=== PATIENT | female | born 2005 | race Caucasian/White ===

== ENCOUNTER 2024-03-22 13:51 | Emergency (ER) | payer OTHER, SELFPAY ==
[2024-03-22 14:02] VITALS: BP 108/58; PULSE 76; RESP 18; TEMP 36.3; O2SAT 98
[2024-03-22 14:03] VITALS: BP 108/58; PULSE 76; RESP 18; TEMP 36.3; O2SAT 98
[2024-03-22] MEDS: LIDO 1%/EPINEPHRINE 1:100,000 20 ML VIAL 4 ML INFILTRATE (14:27)
--- NOTE | 2024-03-22 14:51 | ED.SKABFB ---
HPI - Skin/Abscess/Foreign Bdy General Chief complaint: Skin/Abscess/Foreign Body Stated complaint: lumps on lower bottom region Time Seen by Provider: 03/22/24 14:07 Source: patient and RN notes reviewed Mode of arrival: ambulatory Limitations: no limitations History of Present Illness HPI narrative: Patient presents today complaining of lumps to the gluteal cleft x6days. Denies history of staph, MRSA, boils, abscesses. She has tried some [id number] pain medicine without relief. Related Data Allergies Allergy/AdvReac Type Severity Reaction Status Date / Time No Known Allergies Allergy Verified 03/22/24 14:03 Review of Systems Review of Systems: CONSTITUTIONAL: Denies body aches, fever, chills, or sweats. EYES: Denies visual changes, redness, or discharge. ENT: Denies rhinorrhea, congestion, sore throat, or otalgia. CARDIOVASCULAR: Denies chest pain, palpitations, or edema. RESPIRATORY: Denies cough or dyspnea. GASTROINTESTINAL: Denies abdominal pain, nausea, vomiting, or diarrhea. GENITOURINARY: Denies dysuria or hematuria. SKIN: lump to gluteal cleft MUSCULOSKELETAL: Denies back pain, joint pain, or myalgia. NEUROLOGIC: Denies headache, numbness, tingling, or weakness. PSYCH: Denies depression or anxiety. [facility] Past Medical History Medical History No active medical problems Surgical History Surgical History No pertinent past surgical history Family History Family History Father Hypertension Sibling Childhood asthma Grandparent Asthma Lymphoma Diabetes mellitus Hypertension Grandparent Hypertension Heart disease Social History Social History Smoking status: Never smoker Alcohol intake: never Alcohol use details: has tried it 1 time Substance use: never Last use: has tried marijuana 1 time Lack of Transportation: No Lack of Food: Never True Current Housing: I Have Housing Concerned About Future Housing: No Difficulty Paying Gas/Electric Bills: No Difficulty Paying for Meds: No Currently Unemployed: No Education: High School Diploma/GED Living arrangements: with family Occupation/Education: student Additional occupation/education comments: [employer] Gender identity (if verbalized by the patient): Female Comments At time of signature, I have reviewed and agree with nursing past medical, surgical, social and family history unless otherwise noted. Please see nursing chart for further information. There is no relevant family history pertinent to the presenting complaint Exam Narrative: GENERAL: Well-appearing, well-nourished, and in no acute distress. HEAD: Normocephalic, atraumatic. EYES: EOMI. No redness or drainage. Conjunctivae normal. ENT: Mucous membranes pink and moist. NECK: Normal AROM. CHEST: No respiratory distress. EXTREMITIES: Normal range of motion. No edema. SKIN: Warm, dry, no rash. Capillary refill normal. Normal skin turgor. 2.5cmx1.5cm area of erythema, tenderness and induration to the left gluteal cleft. NEURO: No focal deficits. Alert and oriented x3. Gait steady. PSYCH: Normal affect. No signs of depression or anxiety. Course Course Level of Care: Express Care Visit Vital Signs Vital signs: Vital Signs Temperature 97.4 F L 03/22/24 14:02 Pulse Rate 76 03/22/24 14:02 Respiratory Rate 18 03/22/24 14:02 Blood Pressure 108/58 L 03/22/24 14:02 Pulse Oximetry 98 03/22/24 14:02 Oxygen Delivery Room Air 03/22/24 14:02 Temperature 97.4 F L 03/22/24 14:03 Pulse Rate 76 03/22/24 14:03 Respiratory Rate 18 03/22/24 14:03 Blood Pressure 108/58 L 03/22/24 14:03 Pulse Oximetry 98 03/22/24 14:03 Oxygen Delivery Room Air 03/22/24 1
== END 2024-03-22 14:49 | disposition home or self-care (01) ==
PROVIDERS: Emergency Provider Nurse Practitioner
DX: L05.01 Pilonidal cyst with abscess (principal)
CPT/HCPCS: 10080; 99213; G0463

== ENCOUNTER 2024-03-22 16:40 | Inpatient (IN) | payer OTHER, SELFPAY ==
--- NOTE | ~2024-03-22 | XR_ITS ---
XR chest 2V Ordering provider: Vania Marie PA-C History: 18 years Female with . sepsis w/u . Comparison: None. FINDINGS: MEDIASTINUM: The cardiac silhouette is not enlarged. LUNGS: No infiltrates, effusions or pneumothorax. OTHER: No free air under the diaphragm. IMPRESSION: No acute cardiopulmonary pathology. Reviewed, dictated and finalized at location A.
--- NOTE | ~2024-03-22 | CT_ITS ---
CT pelvis w con Ordering provider: Vania Marie PA-C History: . pilonidal . Comparison: None. Technique: CT pelvis without oral and IV contrast. . Automated exposure control and iterative recons truction technique were employed. The dose-length product was 632.32 mGy-cm. 100 mL Omnipaque 350 was given IV. Findings: BONES: No pelvic fracture or hip dislocation. Normal visualized lower lumbar spine. The hip and sacro iliac joint spaces are well maintained. SUPERFICIAL SOFT TISSUES: Soft tissue density is seen opposite the sacrococcygeal area which may be i nflammatory and measures 2.4 x 2.5 cm.. Clinical evaluation advised. PELVIC ORGANS: The bladder is normal. VISUALIZED BOWEL AND MESENTERY: Normal. No free air or free fluid. No lymphadenopathy. RETROPERITONEUM: Normal aorta. IMPRESSION: Soft tissue density opposite the sacrococcygeal area which may be inflammatory. Clinical evaluation a dvised. Reviewed, dictated and finalized at location A. IMPRESSION: Soft tissue density opposite the sacrococcygeal area which may be inflammatory. Clinical evaluation advised.
[2024-03-22 16:45] VITALS: BP 138/91; PULSE 108; RESP 20; TEMP 37; O2SAT 100
[2024-03-22 17:18] VITALS: BP 114/74; PULSE 116; RESP 18; TEMP 37.5; O2SAT 100
[2024-03-22] MEDS: IBUPROFEN 600 MG TABLET PO (17:35)
--- NOTE | 2024-03-22 17:51 | ED.SKABFB ---
HPI - Skin/Abscess/Foreign Bdy General Chief complaint: Skin/Abscess/Foreign Body <LACY Viramontes Last Filed: 03/22/24 23:00> Stated complaint: Had cyst drained today now feels lightheaded <LACY Viramontes Last Filed: 03/22/24 23:00> Time Seen by Provider: 03/22/24 16:59 <LACY Viramontes Last Filed: 03/22/24 23:00> Source: patient <LACY Viramontes Last Filed: 03/22/24 23:00> Mode of arrival: ambulatory <LACY Viramontes Filed: 03/22/24 23:00> Limitations: no limitations <LACY Viramontes Last Filed: 03/22/24 23:00> History of Present Illness HPI narrative: Patient is a 18 y/o female who presents to the ED with c/o lightheadedness/shakiness. Patient reports she was seen at an urgent care today for a potential pilonidal cyst. I and D was attempted, however no purulent drainage was expressed. Patient was started on Bactrim, but has not picked this up from the pharmacy yet. She reports around 4:00 p[address]. while she was attempting to drive to work, she began feeling very lightheaded, shaky, anxious, nauseous. She then prompted here for further evaluation. She reports feeling hot/diaphoretic, but denies known fever. Complains of pain to her tailbone and head. <LACY Viramontes Last Filed: 03/22/24 23:00> Related Data Allergies/Adverse reactions: Allergies Allergy/AdvReac Type Severity Reaction Status Date / Time No Known Allergies Allergy Verified 03/22/24 17:37 <LACY Viramontes Last Filed: 03/22/24 23:00> Review of Systems Review of Systems: All systems reviewed & are unremarkable except as noted in HPI. <LACY Viramontes Last Filed: 03/22/24 23:00> All systems reviewed & are unremarkable except as noted in HPI and below <Vania Marie PA-C - Last Filed: 03/22/24 23:00> [facility] Past Medical History Medical History: Medical History No active medical problems <Vania Marie PA-C - Last Filed: 03/22/24 23:00> Surgical History Surgical History: Surgical History No pertinent past surgical history <Vania Marie PA-C - Last Filed: 03/22/24 23:00> Family History Family History: Family History Father Hypertension Sibling Childhood asthma Grandparent Asthma Lymphoma Diabetes mellitus Hypertension Grandparent Hypertension Heart disease <Vania Marie PA-C - Last Filed: 03/22/24 23:00> Social History Social History: Social History Smoking status: Never smoker Alcohol intake: never Alcohol use details: has tried it 1 time Substance use: never Last use: has tried marijuana 1 time Do You Feel Safe in your Home?: Yes Lack of Transportation: No Lack of Food: Never True Current Housing: I Have Housing Concerned About Future Housing: No Difficulty Paying Gas/Electric Bills: No Difficulty Paying for Meds: No Currently Unemployed: No Education: High School Diploma/GED Difficulty w/ Childcare or Family Care: No Living arrangements: with family Occupation/Education: student Additional occupation/education comments: [employer] Gender identity (if verbalized by the patient): Female Spiritual care concerns: No <Vania Marie PA-C - Last Filed: 03/22/24 23:00> Exam Narrative: GENERAL: Mildly anxious appearing, morbidly obese with BMI of 40.5, non-toxic, in no acute distress. HEAD: Normocephalic, atraumatic. RESPIRATORY: Airway patent, respirations nonlabored. Clear to auscultation bilaterally, no rales, rhonchi, wheezing. CARDIOVASCULAR: Tachycardic with regular rhythm without murmurs, rubs, or gallops. AB
[2024-03-22] MEDS: ONDANSETRON INJ 4 MG/2 ML VIAL IV PUSH (17:53)
[2024-03-22] MEDS: SODIUM CHLORIDE 0.9% IV 1,000 ML 999 ML IV CONT ×2 (17:54→19:31)
[2024-03-22 18:00] LABS: Hematocrit 39.3 % (37.0-47.0); Hemoglobin 13.2 g/dL (12.0-15.0); Mean Corpuscular HGB Conc 33.6 g/dl (32-36); Mean Corpuscular Hemoglobin 28.6 pg (26-34); Mean Corpuscular Volume 85.1 fl (80-100); Mean Platelet Volume 9.9 fl (7.4-10.4); Platelet Count Result 246 k/mm3 (150-375); Red Blood Count 4.62 M/mm3 (4.2-5.4); Red Cell Distribution Width 12.9 % (11.5-14.5)
[2024-03-22 18:13] LABS: Anion Gap 13 mmol/L (4-12); Blood Urea Nitrogen 6 mg/dL (8-21); Calcium 9.4 mg/dL (8.9-10.7); Carbon Dioxide 25 mmol/L (22-30); Chloride 101 mmol/L (98-107); Estimated Glomerular Filt Rate > 60; Glucose 86 mg/dL (65-110); Magnesium 1.7 mg/dL (1.6-2.3); Potassium 3.5 mmol/L (3.4-5.0); Sodium 139 mmol/L (134-143)
[2024-03-22 18:18] LABS: White Blood Count 1.6 K/mm3 (4.5-10.0)
[2024-03-22 18:20] LABS: Band Neutrophils Percent 2 % (0-6); Neutrophils Absolute Manual 1.28 K/mm3 (1.7-7.2); Neutrophils Percent Manual 78 % (46-73); Total Cells Counted 100
[2024-03-22 18:21] LABS: Eosinophils Absolute Manual 0.01 K/mm3 (0.02-0.50); Eosinophils Percent Manual 1 % (0-4); Lymphocytes Absolute Manual 0.28 K/mm3 (1.1-4.5); Lymphocytes Percent Manual 18 % (18-44); Monocytes Absolute Manual 0.01 K/mm3 (0.1-0.90); Monocytes Percent Manual 1 % (3-9); Platelet Estimate Adequate (Adequate); Schistocytes None Seen
[2024-03-22 19:31] LABS: Lactic Acid Reflex 1.9 mmol/L (0.7-2.0)
[2024-03-22] MEDS: VANCOMYCIN 1,250 MG/NS 250 ML 1,250 MG/250 ML BAG 166.67 MG IVPB ×2 (20:24→22:05)
[2024-03-22 21:18] LABS: Add Urine Microscopic? NO; Appearance Urine Clear (Clear); Bilirubin Urine Negative (Negative); Blood Urine Negative (Negative); Color Urine Yellow (Yellow); Glucose Urine UA Negative (Negative); Ketones Urine Negative (Negative); Leukocyte Esterase Ur Negative LEU/UL (Negative); Nitrate Urine Negative (Negative); Protein Urine Negative (Negative); Specific Grav Ur 1.027 (1.001-1.035); Urobilinogen Urine 0.2 mg/dL (<2.0); pH Urine 5.5 (5.0-9.0)
[2024-03-22] MEDS: SODIUM CHLORIDE 0.9% IV 1,000 ML 125 ML IV CONT (22:09)
[2024-03-22 22:16] VITALS: BP 103/60; PULSE 124; RESP 16; TEMP 36.9; O2SAT 99
--- NOTE | 2024-03-22 23:39 | PM.IMHP ---
H&P: HPI History of Present Illness Date/Time: 03/22/24 23:39 Chief Complaint: sacral pain, lightheadedness, shakiness. Narrative: Ms. Maurer is a pleasant 18-year-old female with a history of obesity, she is accompanied by her father. She lives with her boyfriend. She complains of about 5 days of paiin the soft tissue And her buttock. She would 10 urgent care today on the day of admission 03/22/2024 and an I&D was attempted but there is no purulent drainage at that time. She was prescribed Bactrim but did not pick it up yet and wanted to go to work. Around 4:[address] she attempted to drive to work she began feeling very lightheaded and shaky and anxious And had a headache. She presented to ER for further evaluation. ER evaluation demonstrated a comfortable female with vital signs within normal limits except for sinus tachycardia between One hundred and 124. lab evaluation demonstrated WBC 1.6, absolute neutrophils 1.8, absolute lymphocytes 0.28, absolute monocytes 0.01, absolute Eosinophils 0.01. chest x-ray demonstrates no acute cardiopulmonary pathology, CT pelvis demonstrates soft tissue density opposite the sacrococcygeal area which may be inflammatory. She was given 2 L normal saline bolus, ibuprofen, Zofran, vancomycin. Blood cultures were obtained. Review of Systems Review of Systems: All systems reviewed & are unremarkable except as noted in HPI and below ( Subjective) [facility] Past Medical History Medical History No active medical problems Surgical History Surgical History No pertinent past surgical history Family History Family History Father Hypertension Sibling Childhood asthma Grandparent Asthma Lymphoma Diabetes mellitus Hypertension Grandparent Hypertension Heart disease Social History Social History Smoking status: Never smoker Alcohol intake: never Alcohol use details: has tried it 1 time Substance use: never Last use: has tried marijuana 1 time Lack of Transportation: No Lack of Food: Never True Current Housing: I Have Housing Concerned About Future Housing: No Difficulty Paying Gas/Electric Bills: No Difficulty Paying for Meds: No Currently Unemployed: No Education: High School Diploma/GED Living arrangements: with family Occupation/Education: student Additional occupation/education comments: [employer] Gender identity (if verbalized by the patient): Female Meds Home Medications and Allergies Home Medications Medication Instructions Recorded Confirmed Type norgestimate 0.25 mg-ethinyl 1 tablet PO DAILY #84 tabs 11/01/23 Rx estradiol 35 mcg tablet (Sprintec (28)) sulfamethoxazole 800 1 tablet PO Q12H 10 days #20 tabs 03/22/24 Rx mg-trimethoprim 160 mg tablet (Bactrim DS) Allergies Allergy/AdvReac Type Severity Reaction Status Date / Time No Known Allergies Allergy Verified 03/22/24 17:37 Vital Signs Vital Signs - 24 hr 03/22/24 16:45 03/22/24 17:18 03/22/24 22:16 Temperature 98.6 F 99.5 F 98.4 F Pulse Rate 108 H 116 H 124 H Respiratory Rate 20 18 16 Blood Pressure 138/91 H 114/74 103/60 Pulse Oximetry 100 100 99 Oxygen Delivery Room Air Exam Const: General: comfortable and no acute distress Other: obese. Comfortable. Eyes: Pupils: Equal, round and reactive pupils present Neck: Neck: supple Resp: Effort & Inspection: normal respiratory effort Auscultation: clear to auscultation bilaterally Cardio: Rate: regular rate Rhythm: regular rhythm GI: GI Palp: Yes Soft to palpation and No Tenderness to palpation present (GI) Skin: Other: inside the left gluteal cleft near the midline there is slight indurati
[2024-03-22 23:47] VITALS: BMI 39.7
--- NOTE | 2024-03-22 23:54 | PC.NURSE ---
This patient, Vania Maurer, was admitted to [facility] Surg Room 327-01. Patient/family oriented to hospital policies and general routines including ID bracelet, bed and alarms, visiting hours, pain management, procedures, bathroom and other care routines, personal items, smoking policy, room service/diet, and visiting hours. Information on how to activate the Rapid Response Team has been discussed. Patient/Family are encouraged to report perceived risks to care and to ask questions if they do not understand what they are told or what they should do.
[2024-03-23] VITALS (10 sets, daily range): BP systolic 102–106; BP diastolic 56–60; PULSE 88–120; RESP 18–20; TEMP 36.8–38.1; O2SAT 99–100
[2024-03-23] MEDS: ACETAMINOPHEN 500 MG TABLET 1000 MG PO (03:00)
[2024-03-23] MEDS: SODIUM CHLORIDE 0.9% IV 1,000 ML 125 ML IV CONT ×2 (06:52→19:48)
[2024-03-23 07:46] LABS: Anion Gap 9 mmol/L (4-12); Blood Urea Nitrogen 2 mg/dL (8-21); Calcium 8.4 mg/dL (8.9-10.7); Carbon Dioxide 21 mmol/L (22-30); Chloride 105 mmol/L (98-107); Estimated CRCL calculation 178 ml/min; Estimated Glomerular Filt Rate > 60; Glucose 138 mg/dL (65-110); Magnesium 1.6 mg/dL (1.6-2.3); Potassium 3.3 mmol/L (3.4-5.0); Sodium 135 mmol/L (134-143)
[2024-03-23] MEDS: VANCOMYCIN 1,500 MG/NS 500 ML 1,500 MG/500 ML BAG 250 MG IVPB ×2 (08:17→19:46)
[2024-03-23 08:23] LABS: Basophils Percent Auto 0.4 % (0.2-1.2); Eosinophils Percent Auto 0.1 % (0-4.4); Hematocrit 33.5 % (37.0-47.0); Hemoglobin 11.2 g/dL (12.0-15.0); Immature Granulocyte Absolute 0.03 K/mm3 (0.00-0.031); Immature Granulocyte Percent A 0.3 % (0-0.5); Lymphocytes Absolute Auto 0.21 K/mm3 (0.9-3.2); Lymphocytes Percent Auto 2.1 % (18.3-44.2); Mean Corpuscular HGB Conc 33.4 g/dl (32-36); Mean Corpuscular Hemoglobin 28.1 pg (26-34); Mean Corpuscular Volume 84.2 fl (80-100); Monocytes Absolute Auto 0.3 K/mm3 (0.1-0.6); Monocytes Percent Auto 2.6 % (2.6-8.5); Neutrophils Absolute Auto 9.6 K/mm3 (1.3-6.7); Neutrophils Percent Auto 94.5 % (45.5-73.1); Platelet Count Result 222 k/mm3 (150-375); Red Blood Count 3.98 M/mm3 (4.2-5.4); Red Cell Distribution Width 13.1 % (11.5-14.5); White Blood Count 10.1 K/mm3 (4.5-10.0)
[2024-03-23] MEDS: IBUPROFEN 600 MG TABLET PO ×2 (08:53→16:46)
--- NOTE | 2024-03-23 09:40 | PM.CNGS ---
Assessment and Plan Assessment and plan (1) Pilonidal cyst: Code(s): L05.91 - Pilonidal cyst without abscess Status: Acute Assessment and Plan: Small area of erythema and induration at the top of the gluteal cleft. CT pelvis showed a 2.5 cm area of soft tissue density, possibly inflammation, in this same area. No CT evidence of a deeper abscess. She is clinically improving with IV antibiotics. No obvious area on my exam that would require further incision and drainage. Continue antibiotics for now and repeat exam and labs tomorrow. (2) Sepsis: Qualifiers: Sepsis acute organ dysfunction status: unspecified Sepsis type: sepsis due to unspecified organism Qualified Code(s): A41.9 - Sepsis, unspecified organism Code(s): A41.9 - Sepsis, unspecified organism Status: Acute Assessment and Plan: Patient presented with neutropenia, fever, and tachycardia. Etiology unclear. Chest x-ray negative. UA negative. The small area of induration near the gluteal cleft does not clinically correlate with an infection that you would expect to cause sepsis. Would recommend further evaluating other sources. I will test her for COVID given the recent nausea, vomiting, and sore throat. (3) Vomiting: Code(s): R11.10 - Vomiting, unspecified Status: Acute Assessment and Plan: She had nausea and vomiting 4 days ago, which improved. She had nausea again yesterday, but is feeling better this morning. Etiology unclear. Suspicious that she has some other viral illness that is causing some of these symptoms. (4) Obesity (BMI 30.0-34.9): Code(s): E66.9 - Obesity, unspecified Status: Acute Plan I have discussed the patient's case and plan of care with Dr. Jiménez. Thank you for allowing us to see the patient in consultation and we will continue to follow along with you. History of Present Illness Consult details Consult date: 03/23/24 Reason for consult: other (Sepsis, pilonidal cyst) Requesting physician: Vania Marie PA-C Narrative: This is a 18-year-old woman who we have been asked to see in surgical consultation for pilonidal cyst in the setting of sepsis. She is seen on the medical floor with her mother at the bedside. She reports first noticing two small bumps on the left and right of her gluteal cleft 6 days ago. Over the next few days, she noticed more swelling and pain in this area at the top of her gluteal cleft. Wednesday morning, she reports nausea and vomiting. She vomited 5 times early that morning. This subsided and she has not had any nausea, vomiting, or diarrhea since then. By Wednesday, she was unable to walk due to her gluteal pain. She was unable to get in with primary care and decided to go to Urgent Care yesterday. They attempted incision and drainage but this did not yield any purulent drainage. She was prescribed Bactrim. 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 She has been tachycardic with heart rate between 110-120's. She had a temperature of 100.6F early this morning. Labs showed WBC count 1,600. Chest x-ray was negative for any acute cardiopulmonary findings. UA negative for UTI. CT pelvis showed soft tissue density opposite the sacrococcygeal area which may be inflammatory. She was admitted in the setting of sepsis and for surgical evaluation of a possible pilonidal cyst. She was started on IV Vancomycin. Blood cultures are pending. Labs this morning are pending. She denies any surgical history or significant medical history. No previous issues with a pilonidal cyst or abscess. With further questioning of any other symptoms, she does report having a sore throat this morning. Denies diarrhea, cough, congestion, or any other complaints. Review of Systems Review of Systems: All systems reviewed & are unremarkable except as noted in HPI and below PMFSH Past Medical History
[2024-03-23 12:08] LABS: Influenza A QL RT-PCR Negative (Negative); Influenza B QL RT-PCR Negative (Negative); RSV RNA, RT-PCR Negative (Negative); SARS-CoV-2 RNA PCR Negative (Negative)
--- NOTE | 2024-03-23 14:27 | PM.IMPN ---
Progress Note: A&P Assessment and Plan (1) Cellulitis of buttock: Code(s): L03.317 - Cellulitis of buttock Status: Inactive (2) Sepsis: Qualifiers: Sepsis acute organ dysfunction status: unspecified Sepsis type: sepsis due to unspecified organism Qualified Code(s): A41.9 - Sepsis, unspecified organism Code(s): A41.9 - Sepsis, unspecified organism Status: Acute Plan Sepsis Patient with neutropenia, fever and tachycardia vital signs improving continue monitoring blood culture continue IVF abd Antibiotics Cellulitis of sacrococcygeal area No drainable abscess continue abx and monitor cultures Surgery eval noted DVT prophylaxis on Sq lovenox Subjective Date/time seen: 03/23/24 14:27 Interval history: Patient comfortable at bedside and noted that her pain has markedly improved Gen surgery evaluated and no abscess to drain Review of Systems Review of Systems: All systems reviewed & are unremarkable except as noted in HPI and below ( Subjective) Exam Narrative: General: alert and comfortable Eyes: EOMI, PERRLA ENNT External ears normal, Neck is supple, no masses, Respiratory systems: Clear to auscultation Cardiovascular S1, S2, normal rhythm, no murmur, rub, or gallop; no thrill or palpable murmurs on palpation. Gastrointestinal: soft, non-tender, and non-distended abdomen with no masses; BS present Skin: no rash, lesions, ulcerations, subcutaneous nodules or induration Musculoskeletal: no abnormality and no tenderness, normal ROM Neurologic: Alert and oriented x3, non focal Mental Status Exam: normal affect Objective Data Vital Signs Vital Signs: Vital Signs - 24 hr 03/22/24 16:45 03/22/24 17:18 03/22/24 22:16 Temperature 98.6 F 99.5 F 98.4 F Pulse Rate 108 H 116 H 124 H Respiratory Rate 20 18 16 Blood Pressure 138/91 H 114/74 103/60 Pulse Oximetry 100 100 99 Oxygen Delivery Room Air 03/22/24 23:46 03/23/24 00:00 03/23/24 04:00 Temperature Pulse Rate 107 H 113 H Respiratory Rate Blood Pressure Pulse Oximetry Oxygen Delivery Room Air 03/23/24 05:37 03/23/24 06:23 03/23/24 08:00 Temperature 100.6 F H 98.9 F Pulse Rate 120 H 102 H Respiratory Rate 18 Blood Pressure 106/56 L Pulse Oximetry 100 Oxygen Delivery 03/23/24 12:00 Temperature Pulse Rate 95 Respiratory Rate Blood Pressure Pulse Oximetry Oxygen Delivery Intake/Output Intake/Output: Intake & Output 03/20/24 03/21/24 03/22/24 03/23/24 23:59 23:59 23:59 23:59 Intake Total 2250.0 1500 Output Total 1200 Balance 2250.0 300 Meds/Results Medications: Active Medications Generic Name Dose Route Start Last Admin Trade Name Freq PRN Reason Stop Dose Admin Acetaminophen 1,000 mg 03/22/24 21:52 03/23/24 03:00 Acetaminophen 500 Mg Tablet PO 1,000 mg Q6H PRN Administration Mild Pain (1-3) or Fever Dextrose 12.5 gm 03/22/24 21:52 Dextrose 50% 25 Gm/50 Ml Syringe IV PUSH PRN PRN Hypoglycemia Protocol Glucagon 1 mg 03/22/24 21:52 Glucagon For Inj 1 Mg Vial IM PRN PRN Hypoglycemia Protocol Glucose 15 gm 03/22/24 21:52 Glucose Oral Gel 15 Gm Of Glucse In 37.5 Gm Tube PO PRN PRN Hypoglycemia Protocol Vancomycin HCl 1,500 mg in 500 mls @ 250 mls/hr 03/23/24 08:00 03/23/24 08:17 Vancomycin 1,500 Mg/Ns 500 Ml IVPB 250 mls/hr Q12H CAMRYN Administration Sodium Chloride 1,000 mls @ 125 mls/hr 03/22/24 21:55 03/23/24 06:52 Normal Saline Iv IV CONT 125 mls/hr .Q8H CAMRYN Administration Dextrose 1,000 mls @ 100 mls/hr 03/22/24 21:52 Dextrose 5% 1,000 Ml IVPB PRN PRN Hypoglycemia Protocol Ibuprofen 600 mg 03/22/24 21:52 03/23/24 08:53 Ibuprofen 600 Mg Tablet PO 600 mg Q6H PRN Administration MOD Pain or Fever Ondansetron HCl 4 mg 03/22/24 21:52 Ondansetron Inj 4 Mg/2 Ml Vial IV PUSH
[2024-03-23] MEDS: ONDANSETRON INJ 4 MG/2 ML VIAL IV PUSH (17:00)
[2024-03-23] MEDS: POTASSIUM CHLORIDE 20 MEQ ER TABLET 40 MEQ PO (17:00)
[2024-03-24] VITALS: PULSE 91
[2024-03-24 04:00] VITALS: PULSE 86
[2024-03-24 05:25] VITALS: BP 111/61; PULSE 107; RESP 16; TEMP 36.8; O2SAT 98
[2024-03-24] MEDS: ACETAMINOPHEN 500 MG TABLET 1000 MG PO (05:43)
[2024-03-24 07:24] LABS: Basophils Percent Auto 0.2 % (0.2-1.2); Eosinophils Absolute Auto 0.1 K/mm3 (0-0.3); Eosinophils Percent Auto 1.2 % (0-4.4); Hematocrit 34.2 % (37.0-47.0); Hemoglobin 11.4 g/dL (12.0-15.0); Lymphocytes Absolute Auto 0.52 K/mm3 (0.9-3.2); Lymphocytes Percent Auto 12.1 % (18.3-44.2); Mean Corpuscular HGB Conc 33.3 g/dl (32-36); Mean Corpuscular Hemoglobin 28.2 pg (26-34); Mean Corpuscular Volume 84.7 fl (80-100); Mean Platelet Volume 10.6 fl (7.4-10.4); Monocytes Absolute Auto 0.3 K/mm3 (0.1-0.6); Monocytes Percent Auto 6.8 % (2.6-8.5); Neutrophils Absolute Auto 3.4 K/mm3 (1.3-6.7); Neutrophils Percent Auto 79.7 % (45.5-73.1); Platelet Count Result 196 k/mm3 (150-375); Red Blood Count 4.04 M/mm3 (4.2-5.4); Red Cell Distribution Width 13.2 % (11.5-14.5); White Blood Count 4.3 K/mm3 (4.5-10.0)
[2024-03-24 07:28] LABS: Estimated CRCL calculation 178 ml/min; Estimated Glomerular Filt Rate > 60
[2024-03-24 07:32] LABS: Vancomycin Trough 5.1 ug/mL (10.0-20.0)
[2024-03-24 08:00] VITALS: PULSE 78
[2024-03-24] MEDS: ENOXAPARIN 40 MG/0.4 ML SYRINGE SUB-Q (08:27)
[2024-03-24] MEDS: VANCOMYCIN 2,000 MG/NS 500 ML 2,000 MG/500 ML BAG 250 MG IVPB (08:27)
--- NOTE | 2024-03-24 11:06 | WPDPN ---
Progress Note: A&P Assessment and Plan (1) Pilonidal cyst: Code(s): L05.91 - Pilonidal cyst without abscess Status: Acute Assessment and Plan: Patient had a pilonidal cellulitis which was rather extensive. She had a systemic effects of the infection and has showed signs of sepsis. This is resolved with a course of IV vancomycin. White blood cell count is 4000 and does not appear to have an abscess. Cellulitis has pretty much resolved. I think she can discharge today on oral antibiotics for another 10 days. Patient apparently has some Bactrim home she after urgent care center and that would be fine home on oral antibiotics at home and as far as I am concerned but will defer the final choice to the hospitalist. Patient can follow-up see me in the office in 2 weeks. (2) Sepsis: Qualifiers: Sepsis acute organ dysfunction status: unspecified Sepsis type: sepsis due to unspecified organism Qualified Code(s): A41.9 - Sepsis, unspecified organism Code(s): A41.9 - Sepsis, unspecified organism Status: Acute Assessment and Plan: Resolved. Subjective Date/time seen: 03/24/24 11:06 Interval history: Only minor pain she sits on her tailbone. Fever. Tolerating diet. Was still getting IV a son overnight. White blood cell count is 4000 today. Exam Skin: Other: Upper midline gluteal cleft with resolving induration and no redness. No purulent drainage. Minimal tenderness to palpation. Objective Data Vital Signs Vital Signs: Vital Signs - 24 hr 03/23/24 12:00 03/23/24 14:00 03/23/24 16:00 Temperature 37.0 C Pulse Rate 95 110 H 88 Respiratory Rate 18 Blood Pressure 106/60 Pulse Oximetry 99 Oxygen Delivery 03/23/24 20:00 03/23/24 20:40 03/23/24 20:00 Temperature 36.8 C Pulse Rate 89 117 H Respiratory Rate 20 Blood Pressure 102/60 Pulse Oximetry 100 Oxygen Delivery Room Air 03/24/24 00:00 03/24/24 04:00 03/24/24 05:25 Temperature 36.8 C Pulse Rate 91 86 107 H Respiratory Rate 16 Blood Pressure 111/61 Pulse Oximetry 98 Oxygen Delivery Intake/Output Intake/Output: Intake & Output 03/21/24 03/22/24 03/23/24 03/24/24 23:59 23:59 23:59 23:59 Intake Total 2250.0 4098 1368 Output Total 2400 800 Balance 2250.0 1698 568 Meds/Results Medications: Active Medications Generic Name Dose Route Start Last Admin Trade Name Freq PRN Reason Stop Dose Admin Acetaminophen 1,000 mg 03/22/24 21:52 03/24/24 05:43 Acetaminophen 500 Mg Tablet PO 1,000 mg Q6H PRN Administration Mild Pain (1-3) or Fever Dextrose 12.5 gm 03/22/24 21:52 Dextrose 50% 25 Gm/50 Ml Syringe IV PUSH PRN PRN Hypoglycemia Protocol Enoxaparin Sodium 40 mg 03/24/24 09:00 03/24/24 08:27 Enoxaparin 40 Mg/0.4 Ml Syringe SUB-Q 40 mg DAILY CAMRYN Administration Glucagon 1 mg 03/22/24 21:52 Glucagon For Inj 1 Mg Vial IM PRN PRN Hypoglycemia Protocol Glucose 15 gm 03/22/24 21:52 Glucose Oral Gel 15 Gm Of Glucse In 37.5 Gm Tube PO PRN PRN Hypoglycemia Protocol Sodium Chloride 1,000 mls @ 125 mls/hr 03/22/24 21:55 03/24/24 05:39 Normal Saline Iv IV CONT Infused .Q8H CAMRYN Infusion Dextrose 1,000 mls @ 100 mls/hr 03/22/24 21:52 Dextrose 5% 1,000 Ml IVPB PRN PRN Hypoglycemia Protocol Vancomycin HCl 2,000 mg in 500 mls @ 250 mls/hr 03/24/24 09:00 03/24/24 08:27 Vancomycin 2,000 Mg/Ns 500 Ml IVPB 250 mls/hr Q8H CAMRYN Administration Ibuprofen 600 mg 03/22/24 21:52 03/23/24 16:46 Ibuprofen 600 Mg Tablet PO 600 mg Q6H PRN Administration MOD Pain or Fever Ondansetron HCl 4 mg 03/22/24 21:52 03/23/24 17:00 Ondansetron Inj 4 Mg/2 Ml Vial IV PUSH 4 mg Q4H PRN Administration Nausea Radiology Results: ITS Impressions Pelvis CT 03/22/24 20:12 IMPRESSION: Soft tissue density opposite the sacroc
[2024-03-24 12:00] VITALS: PULSE 92
[2024-03-24 14:00] VITALS: BP 122/75; PULSE 92; RESP 18; TEMP 36.4; O2SAT 100
--- NOTE | 2024-03-24 15:32 | PM.DS ---
DS: Admitting Diagnosis Discharge Date 03/24/24 Admitting Diagnosis buttocks pain DS: Discharge Diagnosis Discharge Diagnosis (1) Sepsis: Qualifiers: Sepsis acute organ dysfunction status: unspecified Sepsis type: sepsis due to unspecified organism Qualified Code(s): A41.9 - Sepsis, unspecified organism Code(s): A41.9 - Sepsis, unspecified organism Status: Acute (2) Cellulitis: Code(s): L03.90 - Cellulitis, unspecified Status: Acute DS: Summary Hospital Course Hospital Course: Ms. Maurer is a pleasant 18-year-old female with a history of obesity, she is accompanied by her father. She lives with her boyfriend. She complains of about 5 days of paiin the soft tissue And her buttock. She would 10 urgent care today on the day of admission 03/22/2024 and an I&D was attempted but there is no purulent drainage at that time. She was prescribed Bactrim but did not pick it up yet and wanted to go to work. Around 4:[address] she attempted to drive to work she began feeling very lightheaded and shaky and anxious And had a headache. She presented to ER for further evaluation. ER evaluation demonstrated a comfortable female with vital signs within normal limits except for sinus tachycardia between One hundred and 124. lab evaluation demonstrated WBC 1.6, absolute neutrophils 1.8, absolute lymphocytes 0.28, absolute monocytes 0.01, absolute Eosinophils 0.01. chest x-ray demonstrates no acute cardiopulmonary pathology, CT pelvis demonstrates soft tissue density opposite the sacrococcygeal area which may be inflammatory. Sepsis resolved with IVF, and antibiotics. Gen surgery was consulted and evaluated patient noted no need for surgical intervention as there was no abscess. Pain markedly improved and patient was ambulatory and tolerating diet. Surgery noted patient can continue with bactrim she was already prescribed at Urgent and they will follow up in 2 weeks Assessment and Plan (1) Cellulitis of buttock: Code(s): L03.317 - Cellulitis of buttock Status: Inactive (2) Sepsis: Qualifiers: Sepsis acute organ dysfunction status: unspecified Sepsis type: sepsis due to unspecified organism Qualified Code(s): A41.9 - Sepsis, unspecified organism Code(s): A41.9 - Sepsis, unspecified organism Status: Acute Plan Sepsis Patient with neutropenia, fever and tachycardia vital signs improving continue monitoring blood culture continue IVF abd Antibiotics Cellulitis of sacrococcygeal area No drainable abscess continue abx and cultures negative so far patient linda continue with Bactrim and continue follow up with surgery in 2 weeks F/u PCP in 3-5 days, f/u with gen surgery in 2 weeks Time Spent with Patient Time attestation: Total time spent providing and/or coordinating discharge services: DS: Data Data Completed and Pending Labs on day of discharge: Labs from last 24 hours 03/24/24 07:09 WBC 4.3 L RBC 4.04 L Hgb 11.4 L Hct 34.2 L MCV 84.7 MCH 28.2 MCHC 33.3 RDW 13.2 Plt Count 196 MPV 10.6 H Immature Gran % (Auto) 0.0 Neut % (Auto) 79.7 H Lymph % (Auto) 12.1 L Granite % (Auto) 6.8 Eos % (Auto) 1.2 Baso % (Auto) 0.2 Lymph # (Auto) 0.52 L Granite # (Auto) 0.3 Eos # (Auto) 0.1 Baso # (Auto) 0.0 Abs Immat Gran (auto) 0.00 Absolute Neuts (auto) 3.4 Absolute Nucleated RBC 0.000 Nucleated RBC % 0.0 Creatinine 0.50 L Estim Creat Clear Calc 178 Estimated GFR > 60 Vancomycin Trough 5.1 L Preliminary micro results at discharge 03/22/24 19:12 Blood Culture - Preliminary Blood 03/22/24 19:12 Blood Culture - Preliminary Blood Discharge Plan Discharge Attending physician on discharge: Micaela Parker Consulting providers: David Jiménez Discharging Clinician: Micaela Parker Anticipated Discharge Date/Time: 03/24/24 15:29 Patient Disposition: Home, Self-Care
--- NOTE | 2024-03-28 10:15 | PC.NURSE ---
Received call from Nathen Son in the lab. Pt has preliminary positive BC. Results taken and faxed to Dr. Haile's office. Patient was dc on no antibiotics.
== END 2024-03-24 15:55 | disposition home or self-care (01) | DRG 872 ==
LOC: ANHED 20:52 → ANH3MEDSUR 22:29
PROVIDERS: Nurse Practitioner Family; Surgery; Admitting Provider General Practice; Emergency Provider Physician Assistant; PCP Family Medicine; Visit Provider Internal Medicine
DX: A41.9 Sepsis, unspecified organism (principal); L03.317 Cellulitis of buttock; Z68.41 Body mass index [BMI] 40.0-44.9, adult; E66.9 Obesity, unspecified; L05.91 Pilonidal cyst without abscess; Z20.822 Contact with and (suspected) exposure to COVID-19
CPT/HCPCS: 36415; 71046; 72193; 80048; 80202; 81003; 82565; 83605; 83735; 85025; 87040; 87637; 96361; 96365; 96366; 96375; 99285; A9270; G0378; J1650; J2405; J3370; J7030; Q9967

== ENCOUNTER 2024-04-10 11:36 | Outpatient (CLI) | payer OTHER, SELFPAY ==
[2024-04-10 12:00] LABS: Basophils Absolute Auto 0.1 K/mm3 (0.0-0.1); Basophils Percent Auto 1.3 % (0.2-1.2); Eosinophils Absolute Auto 0.1 K/mm3 (0-0.3); Eosinophils Percent Auto 2.7 % (0-4.4); Hematocrit 39.9 % (37.0-47.0); Hemoglobin 12.8 g/dL (12.0-15.0); Lymphocytes Percent Auto 48.1 % (18.3-44.2); Mean Corpuscular HGB Conc 32.1 g/dl (32-36); Mean Corpuscular Hemoglobin 27.4 pg (26-34); Mean Corpuscular Volume 85.4 fl (80-100); Mean Platelet Volume 9.9 fl (7.4-10.4); Monocytes Absolute Auto 0.3 K/mm3 (0.1-0.6); Monocytes Percent Auto 8.3 % (2.6-8.5); Neutrophils Absolute Auto 1.5 K/mm3 (1.3-6.7); Neutrophils Percent Auto 39.6 % (45.5-73.1); Platelet Count Result 292 k/mm3 (150-375); Red Blood Count 4.67 M/mm3 (4.2-5.4); Red Cell Distribution Width 12.9 % (11.5-14.5); White Blood Count 3.7 K/mm3 (4.5-10.0)
[2024-04-10 12:09] LABS: Alanine Aminotransferase 27 U/L (6-35); Albumin Level 4.4 g/dL (3.7-5.6); Alkaline Phosphatase 83 U/L (45-116); Anion Gap 10 mmol/L (4-12); Aspartate Amino Transferase 28 U/L (14-36); Bilirubin,Total 0.3 mg/dL (0.2-1.3); Blood Urea Nitrogen 8 mg/dL (8-21); Calcium 9.2 mg/dL (8.9-10.7); Carbon Dioxide 25 mmol/L (22-30); Chloride 105 mmol/L (98-107); Cholesterol 238 mg/dL (0-200); Estimated Glomerular Filt Rate > 60; Glucose 81 mg/dL (65-110); HDL Direct 55 mg/dL; Potassium 3.8 mmol/L (3.4-5.0); Sodium 140 mmol/L (134-143); Triglycerides 149 mg/dL (<150)
[2024-04-10 12:20] LABS: LDL Cholesterol Direct 133 mg/dL
[2024-04-11 10:39] LABS: CRP, High Sensitivity 3.6 mg/L
== END 2024-04-10 11:37 | disposition home or self-care (01) ==
LOC: ANHLAB 11:40
PROVIDERS: PCP Family Medicine; Visit Provider Nurse Practitioner Family
DX: E65 Localized adiposity (principal); L05.91 Pilonidal cyst without abscess; Z00.00 Encounter for general adult medical examination without abnormal findings; Z76.89 Persons encountering health services in other specified circumstances; Z82.41 Family history of sudden cardiac death
CPT/HCPCS: 36415; 80053; 80061; 82530; 83036; 84443; 85025; 86141

== ENCOUNTER 2024-04-11 07:44 | Outpatient (NON) | payer OTHER, SELFPAY ==
[2024-04-19 18:34] LABS: Cortisol, Saliva 0.09 mcg/dL
== END 2024-04-11 07:45 | disposition home or self-care (01) ==
LOC: ANHLAB 07:45
PROVIDERS: PCP Family Medicine; Visit Provider Nurse Practitioner Family
DX: E65 Localized adiposity (principal)
CPT/HCPCS: 82530

== ENCOUNTER 2024-04-18 14:27 | Outpatient (CLI) | payer OTHER, SELFPAY | END 2024-04-18 14:28 | disposition home or self-care (01) | LOC: ANHLAB 14:28 | PROVIDERS: PCP Family Medicine; Visit Provider Nurse Practitioner Family | DX: E65 Localized adiposity (principal) | CPT/HCPCS: 82530 ==

== ENCOUNTER 2025-03-09 15:15 | Emergency (ER) | payer OTHER, SELFPAY ==
[2025-03-09 15:31] VITALS: BP 120/89; PULSE 81; RESP 18; TEMP 36.6; O2SAT 99
--- NOTE | 2025-03-09 15:37 | ED_ITS ---
HPI - URI/Sore Throat General Chief Complaint: Upper Respiratory Infection Stated Complaint: URI symptoms Time Seen by Provider: 03/09/25 15:38 Source: patient, RN notes reviewed and old records reviewed Mode of arrival: ambulatory Limitations: no limitations History of Present Illness HPI Narrative: 19 year old female who presents to [facility] care with complaints of 2 day history of sinus congestion and drainage, headache last evening and did take Tylenol for her discomfort, cough which is non productive. Patient reports that today she has sore throat with reported history of strep as child. Patient reports that she generally does not feel well today,denies any nausea or vomiting or diarrhea nno chest pain or any shortness of breath MD elicited complaint: cough, sore throat, rhinorrhea, nasal congestion and sinus pain Onset (ago): day(s) (2) Description of mucous: clear Able to tolerate fluids by mouth: Yes Treatments prior to arrival: acetaminophen Related Data Allergies Allergy/AdvReac Type Severity Reaction Status Date / Time No Known Allergies Allergy Verified 03/09/25 15:19 Review of Systems Review of Systems: CONSTITUTIONAL:reports malaise,no chills, sweats, or fever. EYES: Denies visual changes, redness, or discharge. ENT: Reports rhinorrhea, congestion, sinus pain, no otalgia and positive for sore throat. CARDIOVASCULAR: Denies chest pain, palpitations, or edema. RESPIRATORY: Reports cough.? Denies dyspnea. GASTROINTESTINAL: Denies abdominal pain, nausea, vomiting, diarrhea SKIN: Denies rash or itching. MUSCULOSKELETAL: Denies myalgia. NEUROLOGIC: reports episodes of headache. All systems reviewed & are unremarkable except as noted in HPI and below PMFSH Past Medical History Medical History Cellulitis Vomiting Sepsis Encounter for contraceptive surveillance Obesity (BMI 30.0-34.9) Encounter for screening examination for sexually transmitted disease Oral contraception initial prescription No active medical problems Surgical History Surgical History No pertinent past surgical history Family History Family History Father Hypertension Sibling Childhood asthma Grandparent Asthma Lymphoma Diabetes mellitus Hypertension Grandparent Hypertension Heart disease Mother Hypertension Social History Social History Smoking status: Never smoker Alcohol intake: never Alcohol use details: has tried it 1 time Substance use: never Last use: has tried marijuana 1 time Do You Feel Safe in your Home?: Yes Lack of Transportation: No Lack of Food: Never True Current Housing: I Have Housing Concerned About Future Housing: No Difficulty Paying Gas/Electric Bills: No Difficulty Paying for Meds: No Currently Unemployed: No Education: High School Diploma/GED Difficulty w/ Childcare or Family Care: No Living arrangements: with family Occupation/Education: student Additional occupation/education comments: [employer] Gender identity (if verbalized by the patient): Female Spiritual care concerns: No Comments At time of signature, agree with nursing past medical, surgical, social and family history. There is no relevant family history pertinent to the presenting complaint Exam Narrative: GENERAL: Well-appearing, well-nourished, and in no acute distress. HEAD: Normocephalic EYES: PERRLA, conjunctivae clear ENT: Nares clear, turbinates edematous and erythematous, clear discharge. Mucous membranes moist. TM pearly mesa with dull light reflex bilaterally; no tragal tenderness. Oropharynx erythematous without lesions. Tonsils red and enlarged with no lesions or exudates, no drooling, no hoarseness, no trismus, uvula midline. NECK: Supple. No lymphadenopathy CHEST: Clear to auscultation, breath sounds equal. No wheezing, rhonchi, rales, or stridor. No respiratory distress, speaks in full sentences.SAO2 99% on room air, denies any shortness of breath, occasional dry cough present HEART: Regular rate and rhythm. No murmur heard. SKIN: Warm, dry, no rash. NEURO: Alert and oriented x3. PSYCH: Normal mood and affect Course Course Emergency Course: Patient is aware of diagnosis, understands and agrees to treatment plan.? Anticipatory guidance given.? Patient agrees to follow-up as directed and is aware of reasons to seek care at the emergency department. Portions of this record may have been created with voice recognition software Level of Care: Express Care Visit Vital Signs Vital signs: Vital Signs Temperature 36.6 C 03/09/25 15:31 Pulse Rate 81 03/09/25 15:31 Respiratory Rate 18 03/09/25 15:31 Blood Pressure 120/89 03/09/25 15:31 Pulse Oximetry 99 03/09/25 15:31 Oxygen Delivery Room Air 03/09/25 15:31 Temperature 36.6 C 03/09/25 15:31 Pulse Rate 81 03/09/25 15:31 Respiratory Rate 18 03/09/25 15:31 Blood Pressure 120/89 03/09/25 15:31 Pulse Oximetry 99 03/09/25 15:31 Oxygen Delivery Room Air 03/09/25 15:31 Reviewed MDM - URI/Sore Throat MDM Narrative Medical decision making narrative: Differential diagnosis considered: Anthony virus, strep pharyngitis, allergic rhinitis, upper respiratory tract infection, sinusitis, rhinosinusitis, nasopharyngitis. viral pharyngitis, otitis media, otitis externa, pneumonia, bronchitis, viral cough syndrome, viral syndrome, and influenza.? Exam findings show no acute concerns or changes; patient is non-toxic appearing and is in no distress.? Patient is appropriate for outpatient treatment and follow-up. Differential Diagnosis Differential diagnosis: Likely upper respiratory infection, viral infection, pharyngitis and other (cough) Medical Records Attestation: I reviewed the patient's medical records. Lab Data Attestation: I reviewed the patient's lab results. Lab results narrative: strep screen negative, culture sent, COVID antigen negative, Influenza A negative, Influenza B negative Labs: Lab Results 03/09/25 03/09/25 Range/Units 15:45 15:46 POC Influenza A Ag Negative (Negative) POC Influenza B Ag Negative (Negative) POC SARS CoV-2 Ag Negative (Negative) POC Grp A Strep Screen Negative (Negative) reviewed Critical Care Time Critical Care Time Critical Care Time: No Discharge Plan Discharge Clinical Impression: URI, acute Patient Disposition: Home Condition: Stable Instructions: Antibiotic Form, Upper Respiratory Infection (ED) Additional Instructions: Increase fluids especially juices and water [id number] cough and cold medicine of your choice for your symptoms Prescription cough medicine as directed--caution drowsiness and no driving or alcohol Cough tablets as directed for cough--do not bite, chew or suck on--swallow whole Steroids as directed--take with food Zyrtec Claritin or Yasmine daily heat to the face 20-30 minutes 4-6 times a day for pain Salt water gargles, throat lozenges or throat sprays as desired If your symptoms persist, change or worsen significantly before you can contact your personal physician then please, without delay, go to the emergency department for further evaluation. Follow-up with PCP in 7-10 days or sooner if needed Follow up with PCP soon in regards to your blood pressure which is elevated above threshold for referral. Blood pressure above 120/80 may indicate pre- hypertension. 120/89 diastolic elevated Your strep test today was negative. A throat culture will be sent to the laboratory for further testing. IF the test is positive, you will receive a phone call within 48 hours and an appropriate antibiotic will be initiated at that time. Patient Language: [place] Prescriptions: New methylprednisolone [Medrol (Josué)] 4 mg tablets,dose pack See Rx Instructions .ROUTE .COMPLEX Qty: 21 0RF Rx Instructions: orally per package directions take with food benzonatate 200 mg capsule 200 mg PO TID PRN (Reason: cough) Qty: 20 0RF No Action norgestimate-ethinyl estradiol [Sprintec (28)] 0.25-35 mg-mcg tablet 1 tablet PO DAILY Qty: 84 4RF Follow-up/Referrals: Rigoberto Floyd MD [Primary Care Provider, Family Practice] Stand Alone Forms: Work/School Release IP Time of Disposition: 16:06 Quality [place] Coma Scale Eyes: Open Verbal: Oriented and Alert Motor: Follows Commands Tu Coma Total Score: 15
[2025-03-09 15:47] LABS: EDCOVIDSCREEN Negative (Negative)
[2025-03-09 15:47] LABS: EDINFLUASCREEN Negative (Negative); EDINFLUBSCREEN Negative (Negative); EDSTREPNEGPOS1 Negative (Negative)
== END 2025-03-09 16:08 | disposition home or self-care (01) ==
PROVIDERS: Emergency Provider Registered Nurse; PCP Family Medicine
DX: J06.9 Acute upper respiratory infection, unspecified (principal); Z20.822 Contact with and (suspected) exposure to COVID-19; E66.9 Obesity, unspecified; Z68.37 Body mass index [BMI] 37.0-37.9, adult
CPT/HCPCS: 87081; 87426; 87804; 87880; 99213; G0463

== ENCOUNTER 2025-04-20 07:34 | Outpatient (CLI) | payer OTHER, SELFPAY ==
[2025-04-20 09:04] LABS: Hematocrit 38.0 % (37.0-47.0); Hemoglobin 12.3 g/dL (12.0-15.0); Mean Corpuscular HGB Conc 32.4 g/dl (32-36); Mean Corpuscular Hemoglobin 27.3 pg (26-34); Mean Corpuscular Volume 84.3 fl (80-100); Platelet Count Result 271 k/mm3 (150-375); Red Blood Count 4.51 M/mm3 (4.2-5.4); White Blood Count 5.8 K/mm3 (4.5-10.0)
[2025-04-20 09:19] LABS: Hemoglobin A1C 4.8 % (<5.7)
[2025-04-20 09:33] LABS: Alanine Aminotransferase 42 U/L (6-35); Albumin Level 4.4 g/dL (3.5-5.1); Alkaline Phosphatase 86 U/L (38-126); Anion Gap 10 mmol/L (4-12); Aspartate Amino Transferase 47 U/L (14-36); Bilirubin,Total 0.3 mg/dL (0.2-1.3); Blood Urea Nitrogen 10 mg/dL (7-17); Calcium 9.0 mg/dL (8.4-10.2); Carbon Dioxide 24 mmol/L (22-30); Chloride 102 mmol/L (98-107); Cholesterol 175 mg/dL (0-200); Estimated Glomerular Filt Rate > 60; Glucose 83 mg/dL (65-110); HDL Direct 48 mg/dL; Potassium 4.0 mmol/L (3.4-5.0); Sodium 136 mmol/L (137-145); Total Protein 7.6 g/dL (6.3-8.2); Triglycerides 93 mg/dL (<150)
[2025-04-20 09:58] LABS: Thyroid Stimulating Hormone Reflex 4.410 uIU/mL (0.465-4.68)
[2025-04-20 10:28] LABS: Free T4 Free Thyroxine Reflex 1.08 ng/dL (0.78-2.19)
[2025-04-20 11:32] LABS: Total Triiodothyronine (T3) 1.47 NG/ML (0.82-1.58)
[2025-04-21 08:08] LABS: C-Reactive Protein, Cardiac 3.74 mg/L (0.00-3.00)
== END 2025-04-20 07:35 | disposition home or self-care (01) ==
PROVIDERS: PCP Nurse Practitioner Family; Visit Provider Nurse Practitioner Family
DX: R79.82 Elevated C-reactive protein (CRP) (principal); Z13.29 Encounter for screening for other suspected endocrine disorder; Z13.1 Encounter for screening for diabetes mellitus; E78.5 Hyperlipidemia, unspecified; E65 Localized adiposity; R82.998 Other abnormal findings in urine; R63.5 Abnormal weight gain; D70.9 Neutropenia, unspecified
CPT/HCPCS: 36415; 80053; 80061; 83036; 84439; 84443; 84480; 85027; 86141

== ENCOUNTER 2025-04-23 07:59 | Outpatient (CLI) | payer OTHER, SELFPAY ==
[2025-04-27 15:09] LABS: Cortisol,F,ug/24hr,U 50 ug/24 hr (6-42); Cortisol,F,ug/L,U 21 ug/L (Undefined)
== END 2025-04-23 08:00 | disposition home or self-care (01) ==
LOC: ANHLAB 08:02
PROVIDERS: PCP Nurse Practitioner Family; Visit Provider Nurse Practitioner Family
DX: R82.998 Other abnormal findings in urine (principal)
CPT/HCPCS: 82530